=== PATIENT | male | born 1955 | race Caucasian/White ===

== ENCOUNTER → 2024-02-29 10:54 | Outpatient (REF) | payer OTHER, SELFPAY | LOC: RAD 10:54 | PROVIDERS: ATTENDING PHYSICIAN Internal Medicine | DX: K40.90 Unilateral inguinal hernia, without obstruction or gangrene, not specified as recurrent (principal) | CPT/HCPCS: 76705 ==

== ENCOUNTER 2024-04-07 01:09 | Emergency (ER) | payer OTHER, MEDICARE, SELFPAY ==
[2024-04-07 01:13] VITALS: BP 147/88
[2024-04-07 01:18] VITALS: BMI 27.7
--- NOTE | 2024-04-07 01:28 | ED.GENMED ---
History of Present Illness
General
Chief Complaint: Head Injury
Source: patient
Exam Limitations: none
Time Seen by Provider: 04/07/24 01:19
History of Present Illness
History of Present Illness:
This is a 68 year old male that comes in with c/o hitting his head. States that [place] he [place] both of his hands on the side but missed when he went to jump over and fell backward hitting his
head. Denies any LOC. Denies any fever, chills, chest pain, SOB, abd pain, nausea, vomiting, diarrhea, headache, dizziness.
Past History
Past History
ED Past Medical History: Cancer (Melanoma on back), HTN and Other (back pain, Hernia)
ED Past Surgical History: Orthopedic (Left knee surgery, )
Social History
Tobacco: Former smoker
Alcohol: Occasional
Personal: Single
Living: alone
Review of Systems
Review of Systems
All Other Systems: ROS reviewed and negative except as documented in HPI and ROS
Constitutional: Reports no symptoms; Denies fever or chills
EENT: Reports no symptoms
Respiratory: Reports no symptoms; Denies cough or trouble breathing
Cardiac: Reports no symptoms; Denies chest pain
ABD/GI: Reports no symptoms; Denies abdominal pain, nausea, vomiting or diarrhea
: Reports no symptoms; Denies dysuria, frequency or urgency
Musculoskeletal: Reports no symptoms
Skin: Reports no symptoms
Neurological: Reports no symptoms; Denies dizzy or headache
Psychiatric: Reports no symptoms
Phy Exam
General Physical Exam
General Presentation: well appearing and no apparent distress
General age: appears stated age
General Skin: warm and dry
General Habitus: normal
General Mental: alert
General Hydration: appears well hydrated
ENT Exam
ENT Exam: TM's normal, pharynx normal and neck supple
Eye Exam
Eye Exam: EOMI
Cardiovascular Exam
Cardiovascular Exam: regular rate/rhythm, no murmur and normal peripheral pulses
Pulmonary Exam
Pulmonary Exam: lungs clear, no respiratory distress, no rales, chest non tender, no crackles, no rhonchi, no wheezing and no cough
Musculoskeletal Exam
Musculoskeletal Exam: full ROM and other (Negative for any cervical neck spinal or shoulder tenderness with palpation)
Skin Exam
Skin Exam: normal color, warm/dry, no rash and no petechia
Psychiatric Exam
Psychiatric Exam: normal mood/affect
Course
Orders/Labs/Results
Orders:
Orders
04/07/24 01:26
CT Head W/o Iv Contrast Urgent
Comment:
Reason For Exam: fall backwards hitting head
Vital Signs
Initial and Last Documented VS:
Initial Vital Signs
Temp Pulse Resp BP Pulse Ox
97.4 F 76 20 147/88 98
04/07/24 01:13 04/07/24 01:13 04/07/24 01:13 04/07/24 01:13 04/07/24 01:13
Last Documented Vital Signs
Temp Pulse Resp BP Pulse Ox
97.4 F 76 20 147/88 98
04/07/24 01:13 04/07/24 01:13 04/07/24 01:13 04/07/24 01:13 04/07/24 01:13
MDM/Problems Addressed
Differential Diagnosis Includes:
Subdural hematoma, minor head injury
MDM/Problems Addressed:
This is a 68 year old male that attempted to jump over the turn stile. States that he missed the jump and fell backward hitting his head.
Will get CT of the head.
Back into see patient. Explained that his CT is negative for any acute process. Patient can use Tylenol or Ibuprofen for any discomfort. Return with any concerns.
Chronic conditions affecting care:
NA
Acute Exacerbation and/or Progression of Chronic Illness:
NA
*Radiology
Radiology exam reviewed: radiology read reviewed (CT head night hawk- No acute intracranial abnormality. No acute territorial infarct, hemorrhage, mass effect, or midline shift. Mild microangiopathy. )
*Pulse Oximetry
Patient hypoxic: no
*EKG
Interpreted by ED Provider?: NA
Rate: EKG- N/A
*Mobile Disc Jockey Interpretation
Rate: Mobile Disc Jockey- N/A
*Critical Care Note
Total Time (30-74mins, 75-104mins- exclusive of procedures): Not Applicable
ED Attending Note
-
Portions of this chart may have been created with voice recognition software.� Occasional wrong word or��sound alike� substitutions may have occurred due to the inherent limitations of voice recognition software.
Discharge Plan
Departure
Patient Disposition: Home (Routine Discharge)
Date of Disposition: 04/07/24
Time of Disposition: 02:36
Patient with high blood pressure during this ER visit?: Yes
Condition: Good
Covid-19: Not Applicable
Discharge Problem:
Accidental fall, Minor head injury
Instructions: Head Injury in Adults (DC), BLOOD PRESSURE
Referrals:
Willard Worthington MD [Family Provider] - As needed
Activity Restrictions/Additional Instructions:
As discussed, the CT of the head is negative for any acute process. You may use Tylenol or Ibuprofen for pain. Ice to any area that is sore. IF YOU HAVE ANY OTHER CONCERNS PLEASE RETURN TO THE EMERGENCY ROOM.
Interventions
Interventions:
*Risk Screen - Suicide Last Done: 04/07/24 01:12
*Neglect/Abuse Screening Last Done: 04/07/24 01:12
ED- Neurological Assessment Last Done: 04/07/24 01:18
ED-Skin Assessment Last Done: 04/07/24 01:18
Discharge Date and Time
Print Language: GREENLANDIC
== END 2024-04-07 02:43 | disposition home or self-care (01) ==
LOC: EMR 01:09
PROVIDERS: EMERGENCY PHYSICIAN Emergency Medicine; FAMILY PHYSICIAN Internal Medicine
DX: S09.90XA Unspecified injury of head, initial encounter (principal); W19.XXXA Unspecified fall, initial encounter; I10 Essential (primary) hypertension; Z87.891 Personal history of nicotine dependence
CPT/HCPCS: 99284; 70450

== ENCOUNTER 2024-05-23 06:09 | Day surgery (SDC) | payer OTHER, SELFPAY ==
[2024-05-01 12:53] VITALS: BMI 28.2
[2024-05-23] VITALS (10 sets, daily range): BP systolic 116–171; BP diastolic 62–93; BMI 28.2
[2024-05-23] MEDS: TYLENOL 1000 MG PO (08:04)
[2024-05-23] MEDS: NORMOSOL-R/PLASMALYTE-A 1000 IV (08:05)
--- NOTE | 2024-05-23 08:31 | W.SUR.PREOP ---
Pre-Operative Surgical Note
-
I have examined this patient prior to the performance of the scheduled procedure.
The patient's condition is unchanged from the time of the current History and
Physical and the patient is able to undergo the scheduled procedure.
--- NOTE | 2024-05-23 08:31 | HP.FOC2 ---
Focused History & Physical
Chief Complaint
HPI:
Chief Complaint: Left inguinal hernia
HPI / Indication for Planned Procedure: Robotic left inguinal hernia repair with mesh
Relevant Past Medical History: Negative
Relevant Social History: Negative
Relevant Family History: Negative
Relevant Past Surgical History: Negative
Review of Systems
Review of Pertinent Systems: All Systems Negative
Medication
See Medication form for detailed medications: Yes
Medication List (including Herbals & OTC):
Super Beet 1 dose PO DAILY 05/14/24
Tumeric 1 dose PO DAILY 05/14/24
aflibercept 2 mg/0.05 mL intravitreal syringe (Eylea) 2 mg intravitreal ONCE 05/14/24
ascorbic acid (vitamin C) 100 mg tablet (Vitamin C) 100 mg PO DAILY 05/14/24
aspirin 81 mg capsule 81 mg PO DAILY 05/14/24
cholecalciferol (vitamin D3) 25 mcg (1,000 unit) capsule (Vitamin D3) 25 mcg PO DAILY 05/14/24
coenzyme Q10 30 mg capsule 30 mg PO DAILY 05/14/24
losartan 50 mg tablet 50 mg PO HS 05/14/24
magnesium 1 tab PO DAILY 05/14/24
milk thistle seed le-wnkcogidrv-vcurbhfrs-turmeri 250 mg-250 mg tablet (Liver Complex) 1 tab PO DAILY 05/14/24
olive leaf extract 250 mg capsule 1 mg PO DAILY 05/14/24
oregano oil 1,500 mg capsule 1 mg PO DAILY 05/14/24
quercetin 500 mg capsule 500 mg PO DAILY 05/14/24
zinc 10 mg tablet 1 mg PO DAILY 05/14/24
Medications Reviewed: Yes
Allergies and Reactions
Patient has Allergies: No
Noted Allergies and Reactions:
Allergy/AdvReac Type Severity Reaction Status Date / Time
No Known Allergies Allergy Verified 05/23/24 08:00
Pertinent Physical Exam
All Other Systems: Negative
Head/Neck: Normal
Diagnosis / Assessment
This is a 68-year-old male with a symptomatic left inguinal hernia
Plan / Procedure
Will plan for a robotic left inguinal hernia repair with mesh
Anesthesia/Sedation to be done by Anesthesia Provider: Yes
--- NOTE | 2024-05-23 10:23 | W.IMMPOSTOP ---
Surgical Immed Post Op Note
-
Primary Surgeon: Gal Contreras MD
Assisting Surgeon: None
Pre-op Diagnosis: Left inguinal hernia
Post-op Diagnosis: Same
Procedure Performed: Robotic left inguinal hernia repair with mesh
Anesthesia Type: General
Specimen / Cultures: Left cord lipoma
Estimated Blood Loss: 3 cc
Complications: None
Operative Findings: Left direct hernia, small indirect component, no femoral component. The direct space was obliterated using a 2-0 V-Loc suture anchored at coopers. Large cord lipoma resected. The critical view of the MPO was achieved and then
reinforced with a large left 3D Max Bard soft uncoated polypropylene mesh.
--- NOTE | 2024-05-23 10:24 | OR.RPT ---
Operative Report
Operative Report
Patient Name: Rafa Stacy
: 1955
Date of Operation: 05/23/2024
Preoperative Diagnosis: Reducible Inguinal hernia, left
Postoperative Diagnosis: Same
Procedure(s):
Robotic Inguinal Hernia Repair with mesh, (ANNAMARIA approach)
Surgeon(s):
Dr. Contreras
Dean Of Boys(s):
DIONNE rKueger
Anesthesia: General
Estimated Blood Loss: 3 cc
Urine Output: None
Drains/Lines/Implants: Large 3D Max Bard mid weight uncoated polypropylene mesh
Specimens: None
Indication for surgery: The patient has a history of groin pain and noted on exam to have a Left inguinal Hernia(s). Following review of therapeutic options they have elected to undergo a minimally invasive repair.
Operative Findings: Left direct hernia, small indirect component, no femoral component. The direct space was obliterated using a 2-0 V-Loc suture anchored at coopers. Large cord lipoma resected. The critical view of the MPO was achieved and then
reinforced with a large left 3D Max Bard soft uncoated polypropylene mesh.
Details of the operation:
The patient was brought to the Operating Room and placed in the supine position with the arms tucked. IV antibiotics were infused and Venodyne stockings placed. Following uneventful induction of general endotracheal anesthesia, an orogastric tube
were placed. The abdomen was prepped and draped in the usual sterile fashion. The abdomen was entered using a Veress technique which required 1 pass(es), pneumoperitoneum to 15 mmHg was obtained without difficulty. An 8mm trochar was passed
through the abdominal wall roughly 20 cm cephalad to the inguinal canal. We then confirmed that no inadvertent injury was made while passing the trocar or Veress needle. We then placed two additional 8 mm ports in the left upper and right upper
quadrants. We then docked the robot with a Prograsper in the left hand port and monopolar scissors in the right. Large left indirect inguinal hernia could be identified. No defect was noted on the right. We then began by creating a flap at the
level of the ASIS laterally working our way medially to the medial umbilical fold. Staying onto the peritoneum we were able to circumferentially dissect around the hernia sac and and peel it off of the underlying spermatic cord and testicular
vessels, taking care to preserve them. Medially we identified the midline pubis as well as Eric's ligament and ensured to dissect 2 cm below the pubic rim over the bladder. After exposure of the entire myopectineal orifice we identified and
reduced: A very small indirect inguinal hernia, a medium size direct inguinal hernia, and a large cord lipoma that was reduced and resected. There was no femoral component. We achieved a critical view of the MPO. The direct space was then
obliterated using a 2�0 V-Loc suture 180 anchored at coopers taking bites of the attenuated transversalis fascia to obliterate the direct inguinal space.
We then fixated a large 3D max mesh with a 2-0 Vicryl stitch at coopers medially and superior laterally. The flap was then closed with a running 2-0 barbed monocryl suture ensuring that the tail was cut flush with the medial fat pad so that no
barbs were exposed. During the closure of the flap an Angiocath was inserted and 20 cc of quarter percent Marcaine was instilled. The area in the flap cavity was then evacuated of air confirming that the mesh was flush and there were no folds. A
small rent in the peritoneum was noted and closed with 2-0 Vicryl. All needles and instruments were then removed and the robot was undocked. The abdomen was then desufflated, and pneumoperitoneum evacuated. All skin sites were then closed with 4-0
Monocryl followed by Dermabond. Counts were correct and overall, the patient tolerated the procedure well and was taken to the Recovery Room postoperatively in stable condition.
I was the attending physician and performed the procedure with assistance of the PA above. The assistance of DIONNE Krueger was required due to the complexity of the procedure. During the procedure Imani assisted with port placement, instrument and
needle exchanges, and closure of the wound. I was present for all portions of the case, excluding skin closure.
Gal Contreras MD
[2024-05-23] MEDS: MOTRIN 600 MG PO (12:01)
== END 2024-05-23 12:45 | disposition home or self-care (01) ==
LOC: SDS 06:09
PROVIDERS: ATTENDING PHYSICIAN Surgery; FAMILY PHYSICIAN Internal Medicine
DX: K40.90 Unilateral inguinal hernia, without obstruction or gangrene, not specified as recurrent (principal)
CPT/HCPCS: 49650; 88304; 36415; 93005; C1781

== ENCOUNTER → 2025-01-30 14:21 | Outpatient (REF) | payer OTHER, SELFPAY | LOC: HWRAD 14:21 | PROVIDERS: ATTENDING PHYSICIAN Internal Medicine | DX: R19.00 Intra-abdominal and pelvic swelling, mass and lump, unspecified site (principal); G89.29 Other chronic pain | CPT/HCPCS: 76705 ==

== ENCOUNTER → 2025-02-07 09:22 | Outpatient (REF) | payer OTHER, SELFPAY | LOC: RAD 09:22 | PROVIDERS: ATTENDING PHYSICIAN Internal Medicine | DX: R22.2 Localized swelling, mass and lump, trunk (principal) | CPT/HCPCS: 74177; Q9967 ==